=== PATIENT | male | born 1980 | race American Indian/Alaskan Native ===

== ENCOUNTER 2021-01-03 18:58 | Emergency (ER) | payer SELFPAY ==
[2021-01-03] MEDS ORDERED: Haloperidol Lactate 5 MG/ML SDV IVPUSH ONE (19:01)
[2021-01-03] MEDS ORDERED: diphenhydrAMINE 50 MG/ML SDV IVPUSH ONE (19:01)
[2021-01-03] MEDS ORDERED: LORazepam 2 MG/ML SDV IVPUSH ONE (19:01)
[2021-01-03 19:10] VITALS: PULSE 120
--- NOTE | 2021-01-03 19:20 | EDM.PDOCBH ---
ED HPI GENERAL MEDICAL PROBLEM - General Stated Complaint: MEDICAL [facility] Time Seen by Provider: 01/03/21 19:01 Source of Information: Reports: EMS History Limitations: Reports: Altered Mental Status, Combative/Threatening, Intoxication, Uncooperative - History of Present Illness INITIAL COMMENTS - FREE TEXT/NARRATIVE: Anuj is a 40-year-old male presenting to the ED via [facility] for evaluation of altered mental status. The patient was [place] [address] [place] [address] in [place], [place]. Officers helped him up and allowed him to go on his way and shortly thereafter they found him laying in the street again and they contacted EMS to bring him in for evaluation. Patient has become combative and was spitting in the back of the ambulance requiring them to put him in four-point restraints. This aggression continued in the ER with spitting and not being compliant with instructions. This necessitated keeping him in four- point restraints and chemically sedating him. A loose fitting mask had to be placed over his nose and mouth because of his spitting in the room towards staff. The patient is obviously under the influence of some mind altering substance. He has not answering questions. - Related Data Allergies Allergy/AdvReac Type Severity Reaction Status Date / Time No Known Allergies Allergy Verified 01/03/21 19:36 Home Meds: Home Meds FLUoxetine HCl [Prozac] 20 mg PO DAILY 01/03/21 [History] OLANZapine [Olanzapine] 10 mg PO BEDTIME 01/03/21 [History] Past Medical History Gastrointestinal History: Reports: Cholelithiasis Musculoskeletal History: Reports: Fracture Psychiatric History: Reports: Anxiety, Depression - Past Surgical History HEENT Surgical History: Reports: Myringotomy w Tube(s), Oral Surgery GI Surgical History: Reports: Cholecystectomy, Hernia, Inguinal Social & Family History - Caffeine Use Caffeine Use: Reports: Soda ED ROS GENERAL - Review of Systems Review Of Systems: Unable To Obtain Reason Not Obtained: Patient is not willing to answer questions ED EXAM, BEHAVIORAL HEALTH - Physical Exam Exam: See Below Exam Limited By: Altered Mental Status General Appearance: No Apparent Distress, Anxious, Other (Agitated and not easily redirected) Eye Exam: Bilateral Eye: EOMI, PERRL (Pupils are dilated at 6 mm bilaterally but reactive to light) Throat/Mouth: Normal Inspection, Normal Oropharynx, Normal Voice, No Airway Compromise Head: Atraumatic, Normocephalic Neck: Normal Inspection, Supple Respiratory/Chest: No Respiratory Distress, Lungs Clear, Normal Breath Sounds Cardiovascular: Normal Peripheral Pulses, Regular Rate, Rhythm, No Murmur GI/Abdominal: Normal Bowel Sounds, Soft, Non-Tender Back Exam: Normal Inspection Extremities: Normal Inspection, Normal Range of Motion Neurological: No Motor/Sensory Deficits, Opens Eyes to Commands, Other (Slurred speech) Psychiatric: Restless, Agitated, Inattentive, Uncooperative, Suicidal Thoughts (Patient went repeatedly states that he just wants to ) Skin Exam: Warm, Dry, Intact, Normal color COURSE, BEHAVIORAL HEALTH COMP - Course Vital Signs: Last Vital Signs Temp 36.2 C 01/03/21 19:48 Pulse 120 H 01/03/21 19:48 Resp 23 H 01/03/21 19:48 BP Pulse Ox 97 01/03/21 19:48 Orders, Labs, Meds: Laboratory Tests 01/03/21 01/03/21 01/03/21 Range/Units 19:16 19:16 19:16 WBC 11.0 (4.5-11.0) K/uL RBC 5.80 (4.30-5.90) M/uL Hgb 15.5 H D (12.0-15.0) g/dL Hct 47.7 (40.0-54.0) % MCV 82 (80-98) fL MCH 27 (27-31) pg MCHC 33 (32-36) % Plt Count 274 (150-400) K/uL Neut % (Auto) 61.5 (36-66) % Lymph % (Auto) 28.2 (24-44) % [place] % (Auto) 9.6 H (2-6) % Eos % (Auto) 0.2 L (2-4) % Baso % (Auto) 0.5 (0-1) % Sodium 148 (140-148) mmol/L Potassium 4.0 (3.6-5.2) mmol/L Chloride 110 H (100-108) mmol/L Carbon Dioxide 21 (21-32) mmol/L Anion Gap 21.0 H (5.0-14.0) mmol/L BUN 13 (7-18) mg/dL Creatinine 1.3 D (0.8-1.3) mg/dL Est Cr Clr Drug Dosing TNP Estimated GFR (MDRD) > 60 (>60) Glucose 90 (74-106) mg/dL Lactic Acid 2.7 H (0.4-2.0) mmol/L Calcium 8.6 (8.5-10.1) mg/dL Total Bilirubin 0.5 D (0.2-1.0) mg/dL AST 132 H D (15-37) U/L ALT 216 H (12-78) U/L Alkaline Phosphatase 108 (46-116) U/L Total Protein 8.0 (6.4-8.2) g/dL Albumin 3.6 (3.4-5.0) g/dL Globulin 4.4 H (2.3-3.5) g/dL Albumin/Globulin Ratio 0.8 L (1.2-2.2) Urine Color (YELLOW) Urine Appearance (CLEAR) Urine pH (5.0-8.0) Ur Specific [place] (1.008-1.030) Urine Protein (NEGATIVE) mg/dL Urine Glucose (UA) (NEGATIVE) mg/dL Urine Ketones (NEGATIVE) mg/dL Urine Occult Blood (NEGATIVE) Urine Nitrite (NEGATIVE) Urine Bilirubin (NEGATIVE) Urine Urobilinogen (0.2-1.0) EU/dL Ur Leukocyte Esterase (NEGATIVE) Urine RBC (0-5) Urine WBC (0-5) Ur Epithelial Cells Amorphous Sediment Urine Bacteria Urine Mucus Urine Other Urine Opiates Screen (NEGATIVE) Ur Oxycodone Screen (NEGATIVE) Urine Methadone Screen (NEGATIVE) Ur Propoxyphene Screen (NEGATIVE) Ur Barbiturates Screen (NEGATIVE) Ur Tricyclics Screen (NEGATIVE) Ur Phencyclidine Scrn (NEGATIVE) Ur Amphetamine Screen (NEGATIVE) U Methamphetamines Scrn (NEGATIVE) Urine MDMA Screen (NEGATIVE) U Benzodiazepines Scrn (NEGATIVE) U Cocaine Metab Screen (NEGATIVE) U Marijuana (THC) Screen (NEGATIVE) Ethyl Alcohol mg/dL 01/03/21 01/03/21 01/03/21 Range/Units 19:16 20:51 20:51 WBC (4.5-11.0) K/uL RBC (4.30-5.90) M/uL Hgb (12.0-15.0) g/dL Hct (40.0-54.0) % MCV (80-98) fL MCH (27-31) pg MCHC (32-36) % Plt Count (150-400) K/uL Neut % (Auto) (36-66) % Lymph % (Auto) (24-44) % [place] % (Auto) (2-6) % Eos % (Auto) (2-4) % Baso % (Auto) (0-1) % Sodium (140-148) mmol/L Potassium (3.6-5.2) mmol/L Chloride (100-108) mmol/L Carbon Dioxide (21-32) mmol/L Anion Gap (5.0-14.0) mmol/L BUN (7-18) mg/dL Creatinine (0.8-1.3) mg/dL Est Cr Clr Drug Dosing Estimated GFR (MDRD) (>60) Glucose (74-106) mg/dL Lactic Acid (0.4-2.0) mmol/L Calcium (8.5-10.1) mg/dL Total Bilirubin (0.2-1.0) mg/dL AST (15-37) U/L ALT (12-78) U/L Alkaline Phosphatase (46-116) U/L Total Protein (6.4-8.2) g/dL Albumin (3.4-5.0) g/dL Globulin (2.3-3.5) g/dL Albumin/Globulin Ratio (1.2-2.2) Urine Color Yellow (YELLOW) Urine Appearance Clear (CLEAR) Urine pH 5.5 (5.0-8.0) Ur Specific [place] 1.010 (1.008-1.030) Urine Protein Negative (NEGATIVE) mg/dL Urine Glucose (UA) Negative (NEGATIVE) mg/dL Urine Ketones Negative (NEGATIVE) mg/dL Urine Occult Blood Negative (NEGATIVE) Urine Nitrite Negative (NEGATIVE) Urine Bilirubin Negative (NEGATIVE) Urine Urobilinogen 0.2 (0.2-1.0) EU/dL Ur Leukocyte Esterase Small H (NEGATIVE) Urine RBC 0-5 (0-5) Urine WBC 5-10 H (0-5) Ur Epithelial Cells Moderate Amorphous Sediment Not seen Urine Bacteria Rare Urine Mucus Moderate Urine Other Urine Opiates Screen Negative (NEGATIVE) Ur Oxycodone Screen Negative (NEGATIVE) Urine Methadone Screen Negative (NEGATIVE) Ur Propoxyphene Screen Negative (NEGATIVE) Ur Barbiturates Screen Negative (NEGATIVE) Ur Tricyclics Screen Negative (NEGATIVE) Ur Phencyclidine Scrn Negative (NEGATIVE) Ur Amphetamine Screen Negative (NEGATIVE) U Methamphetamines Scrn Negative (NEGATIVE) Urine MDMA Screen Negative (NEGATIVE) U Benzodiazepines Scrn Negative (NEGATIVE) U Cocaine Metab Screen Negative (NEGATIVE) U Marijuana (THC) Screen Negative (NEGATIVE) Ethyl Alcohol 327 mg/dL Medications Discontinued Medications Generic Name Dose Route Start Last Admin Trade Name Freq PRN Reason Stop Dose Admin Diphenhydramine HCl 50 mg 01/03/21 19:01 01/03/21 19:38 Diphenhydramine 50 Mg/Ml Sdv IVPUSH 01/03/21 19:02 50 mg ONETIME ONE Administration Haloperidol Lactate 5 mg 01/03/21 19:01 01/03/21 19:38 Haloperidol Lactate 5 Mg/Ml Sdv IVPUSH 01/03/21 19:02 5 mg ONETIME ONE Administration Haloperidol Lactate 5 mg 01/03/21 19:37 01/03/21 19:45 Haloperidol Lactate 5 Mg/Ml Sdv IM 01/03/21 19:38 5 mg ONETIME ONE Administration Ketamine HCl 400 mg 01/03/21 20:00 01/04/21 00:27 Ketamine 500 Mg/5 Ml Mdv IM 01/03/21 20:01 Not Given ONETIME ONE Lorazepam 2 mg 01/03/21 19:01 01/03/21 19:37 Lorazepam 2 Mg/Ml Sdv IVPUSH 01/03/21 19:02 2 mg ONETIME ONE Administration Olanzapine 15 mg 01/03/21 21:09 01/03/21 21:43 Olanzapine 10 Mg Vial IM 01/03/21 21:10 15 mg ONETIME ONE Administration Olanzapine Confirm 01/03/21 21:13 01/03/21 21:21 Olanzapine 10 Mg Vial Administered 01/03/21 21:14 Not Given Dose 10 mg .ROUTE .STK-MED ONE Re-Assessment/Re-Exam: And is extremely agitated so we initiated sedation with 50 mg of diphenhydramine IV, 5 mg of Haldol IV, and 2 mg of Ativan IV. The patient had no improvement after 20 to 30 minutes so he was given an additional Haldol 5 mg IM. The patient is still quite agitated and thrashing at his restraints after another 30 minutes. The next step would be to administer ketamine 400 milligrams IM for moderate sedation, however, during the time of discussing this the patient started to calm down and is now sleeping. On arrival, the patient's agitation and aggression towards staff necessitated him being placed in four-point restraints. The patient tried to spit at staff and therefore a preformed cone mask was placed on his nose and mouth. I reviewed the patient's labs showing a normal CBC and comprehensive metabolic panel except for an AST and ALT that are markedly elevated, the patient's lactic acid is elevated at 2.7 partly from alcohol intoxication, partly from agitation, and partly from struggling against the restraints. Patient is not compliant so IV hydration is not possible at this time. There is no evidence whatsoever that he is septic. Urinalysis shows 5-10 WBCs with 0-5 RBCs and small amount of leukocyte esterase consistent with a UTI. Urine drug screen is negative for any opiates, THC, MDMA, methamphetamine or PCP. At 2109 patient again became agitated and started screaming so he administered olanzapine 15 mg IM. It appears that he simply intoxicated with a blood alcohol of 327. We will sedate him until he is sober and then discharged home from the hospital on his own recognizance. Departure - Departure Time of Disposition: 07:00 Disposition: Home, Self-Care 01 Clinical Impression: Alcohol abuse - Discharge Information Instructions: Alcohol Use Disorder, Alcohol Intoxication, [id number] Referrals: PCP,None [Primary Care Provider] - Care Plan Goals: I hope that you determine that alcohol is not your friend and at some point are able to get help to remain sober. Good luck and take care. Sepsis Event Note (ED) - Focused Exam Vital Signs: Vital Signs Temp Pulse Resp Pulse Ox 01/03/21 19:48 36.2 C 120 H 23 H 97 01/03/21 19:09 36.2 C 120 H 97 - Problem List & Annotations (1) Alcohol abuse SNOMED Code(s): 41735744 Code(s): F10.10 - ALCOHOL ABUSE, UNCOMPLICATED Status: Acute Priority: Medium Current Visit: Yes - Problem List Review Problem List Initiated/Reviewed/Updated: Yes
[2021-01-03] MEDS ORDERED: Haloperidol Lactate 5 MG/ML SDV IM ONE (19:37)
[2021-01-03] MEDS ORDERED: Ketamine 500 MG/5 ML MDV IM ONE (20:00)
[2021-01-03] MEDS ORDERED: OLANZapine 10 MG Vial IM ONE (21:09)
[2021-01-03] MEDS ORDERED: OLANZapine 10 MG Vial ONE (21:13)
== END 2021-01-04 08:52 | disposition home or self-care (01) ==
LOC: JP.ED 18:58
DX: F10.10 Alcohol abuse, uncomplicated (principal); Y90.8 Blood alcohol level of 240 mg/100 ml or more; Z79.899 Other long term (current) drug therapy
CPT/HCPCS: 36415; 80053; 80305; 80307; 81001; 83605; 85025; 96372; 96374; 96375; 99284; 99285; J1200; J1630; J2060; J3490